=== PATIENT | male | born 1985 | race Hispanic/Latino ===

== ENCOUNTER 2019-02-23 22:31 | Emergency (ER) | payer BC, OTHER ==
[2019-02-23] MEDS ORDERED: ACETAMINOPHEN EXTRA STRENGTH 500 MG TABLET ONE (23:03)
[2019-02-23] MEDS ORDERED: LIDOCAINE 5% TOPICAL PATCH TP ONE (23:03)
[2019-02-23] MEDS ORDERED: DIAZEPAM 5 MG TABLET ONE (23:03)
== END 2019-02-24 00:32 | disposition home or self-care (01) ==
LOC: EDH 22:31
DX: M54.16 Radiculopathy, lumbar region (principal); Z90.5 Acquired absence of kidney

== ENCOUNTER 2019-03-05 12:51 | Emergency (ER) | payer OTHER ==
[2019-03-05] MEDS ORDERED: MECLIZINE HCL 25 MG TABLET ONE (13:05)
== END 2019-03-05 14:25 | disposition home or self-care (01) ==
LOC: EDH 12:51
DX: H81.392 Other peripheral vertigo, left ear (principal); Z90.5 Acquired absence of kidney

== ENCOUNTER 2019-06-02 07:47 | Emergency (ER) | payer OTHER ==
[2019-06-02] MEDS ORDERED: ONDANSETRON HCL 4 MG/2 ML VIAL ONE (08:16)
[2019-06-02] MEDS ORDERED: KETOROLAC TROMETHAMINE 30MG/ML ONE (08:16)
[2019-06-02] MEDS ORDERED: CEFTRIAXONE SODIUM 2 GM VIAL ONE (08:16)
[2019-06-02] MEDS ORDERED: SODIUM CHLORIDE 0.9% 1000ML 2,000 ML IV ONE (08:17)
[2019-06-02 08:18] LABS: APPEARANCE,URINE CLEAR (CLEAR); BASOPHILS % (AUTO) 0.2 % (0.0-5.0); BILIRUBIN,URINE NEGATIVE (NEGATIVE); COLOR,URINE YELLOW (YELLOW); EOSINOPHILS % (AUTO) 0.3 % (0.0-8.0); GLUCOSE, URINE (UA) NEGATIVE (NEGATIVE); HEMATOCRIT 48.6 % (42-54); KETONES,URINE NEGATIVE (NEGATIVE); LEUKOCYTE ESTERASE ,URINE SMALL (NEGATIVE); LYMPHOCYTES % (AUTO) 9.7 % (21.0-51.0); MEAN CORPUSCULAR HEMOGLOBIN 32.1 pg (27.0-33.0); MEAN CORPUSCULAR HGB CONC 34.8 g/dL (32.0-36.0); MEAN CORPUSCULAR VOLUME 92.1 fL (79-99); MONOCYTES % (AUTO) 7.4 % (3.0-13.0); NEUTROPHILS % (AUTO) 82.4 % (40.0-77.0); NITRATE,URINE NEGATIVE (NEGATIVE); OCCULT BLOOD,URINE TRACE-INTACT (NEGATIVE); PLATELET COUNT (AUTO) 155 K/uL (130-400); PROTEIN,URINE 30 mg/dL (NEGATIVE); RED BLOOD CELL COUNT(AUTO) 5.27 MIL/uL (4.50-6.20); RED CELL DISTRIBUTION WIDTH 12.3 % (11.0-15.5)
[2019-06-02 08:28] LABS: CREATININE 1.4 mg/dL (0.5-1.5); POTASSIUM 3.7 mmol/L (3.5-5.1)
[2019-06-02 08:35] LABS: ALBUMIN 3.4 g/dL (3.5-5.0); BILIRUBIN,DIRECT 0.9 mg/dL (0.0-0.3); TOTAL PROTEIN, SERUM 7.9 g/dL (6.0-8.3)
[2019-06-02 09:06] LABS: BACTERIA,URINE Rare /HPF (None Seen); RBC,URINE 0-1 /HPF (0-1); SQUAMOUS EPITHELIAL CELL,UR Few /HPF (0-2)
== END 2019-06-02 11:03 | disposition home or self-care (01) ==
LOC: EDH 07:47
DX: J18.1 Lobar pneumonia, unspecified organism (principal); E86.0 Dehydration; Z90.5 Acquired absence of kidney
CPT/HCPCS: 36415; 74176; 80048; 80076; 81001; 82550; 85025; 96361; 96374; 96375; 99285; J0696; J1885; J2405; J7030

== ENCOUNTER 2021-08-15 00:32 | Emergency (ER) | payer SELFPAY ==
[~2021-08-15] VITALS: Ht 180.3 cm; Wt 136.1 kg
[2021-08-15 01:19] VITALS: BP 136/58
[2021-08-15] MEDS ORDERED: HYDROMORPHONE 1 MG INJ IM ONE (01:30)
[2021-08-15] MEDS ORDERED: LORAZEPAM 2 MG/ML 1 ML VIAL IM ONE (01:30)
[2021-08-15] MEDS ORDERED: DEXAMETHASONE 4 MG TAB PO SCH (01:30)
[2021-08-15] MEDS ORDERED: KETOROLAC 60 MG VIAL (30MG/ML) IM ONE (01:30)
[2021-08-15 02:03] LABS: APPEARANCE,URINE Clear (CLEAR); BILIRUBIN,URINE Negative (NEGATIVE); COLOR,URINE Yellow (YELLOW); GLUCOSE, URINE (UA) Negative (NEGATIVE); KETONES,URINE Trace mg/dL (NEGATIVE); LEUKOCYTE ESTERASE ,URINE Moderate (NEGATIVE); NITRATE,URINE Positive (NEGATIVE); OCCULT BLOOD,URINE Negative (NEGATIVE); PH,URINE 5.5 (5.0-8.0); PROTEIN,URINE Negative (NEGATIVE)
[2021-08-15 02:13] LABS: BACTERIA,URINE Moderate /HPF (None Seen); RBC,URINE 0-1 /HPF (0-1); SQUAMOUS EPITHELIAL CELL,UR Rare /HPF (0-2); WBC,URINE 26-50 /HPF (0-1)
[2021-08-15] MEDS ORDERED: ACET1TAB25 PO (02:34)
[2021-08-15 02:36] VITALS: BP 107/61
== END 2021-08-15 02:56 | disposition home or self-care (01) ==
LOC: EDH 00:32
DX: M54.5 Low back pain (principal); Z79.1 Long term (current) use of non-steroidal anti-inflammatories (NSAID); Z79.52 Long term (current) use of systemic steroids; Z79.899 Other long term (current) drug therapy; Z90.5 Acquired absence of kidney
CPT/HCPCS: 72100; 81001; 87077; 87088; 87186; 96372 ×3; 99284; J1170; J1885; J2060; J8540

== ENCOUNTER 2021-11-16 05:27 | Emergency (ER) | payer SELFPAY ==
[~2021-11-16] VITALS: Ht 180.3 cm; Wt 139.7 kg
[~2021-11-16 05:27] MED LIST: ACET1TAB25 PO
[2021-11-16] MEDS ORDERED: HYDROCODONE/ACETAMINOPHEN 5/325 MG TAB PO ONE (06:00)
[2021-11-16 06:17] LABS: APPEARANCE,URINE Clear (CLEAR); BILIRUBIN,URINE Negative (NEGATIVE); COLOR,URINE Yellow (YELLOW); GLUCOSE, URINE (UA) Negative (NEGATIVE); KETONES,URINE Negative (NEGATIVE); LEUKOCYTE ESTERASE ,URINE Moderate (NEGATIVE); NITRATE,URINE Positive (NEGATIVE); OCCULT BLOOD,URINE Negative (NEGATIVE); PH,URINE 5.5 (5.0-8.0); PROTEIN,URINE Negative (NEGATIVE)
[2021-11-16 06:32] LABS: BASOPHILS % (AUTO) 0.7 % (0.0-5.0); EOSINOPHILS % (AUTO) 4.8 % (0.0-8.0); HEMATOCRIT 43.8 % (42-54); LYMPHOCYTES % (AUTO) 37.9 % (21.0-51.0); MEAN CORPUSCULAR HEMOGLOBIN 30.6 pg (27.0-33.0); MEAN CORPUSCULAR HGB CONC 33.6 g/dL (32.0-36.0); MEAN CORPUSCULAR VOLUME 91.1 fL (79-99); NEUTROPHILS % (AUTO) 48.3 % (40.0-77.0); PLATELET COUNT (AUTO) 178 K/uL (130-400); RED BLOOD CELL COUNT(AUTO) 4.81 MIL/uL (4.50-6.20); RED CELL DISTRIBUTION WIDTH 12.2 % (11.0-15.5); WHITE BLOOD COUNT (AUTO) 7.5 K/uL (4.8-10.8)
[2021-11-16 06:42] LABS: BACTERIA,URINE Many /HPF (None Seen); RBC,URINE 0-1 /HPF (0-1); SQUAMOUS EPITHELIAL CELL,UR Rare /HPF (0-2); WBC,URINE 26-50 /HPF (0-1)
[2021-11-16 06:46] LABS: ALBUMIN 3.7 g/dL (3.5-5.0); BILIRUBIN,TOTAL 0.7 mg/dL (0.2-1.0); CREATININE 1.6 mg/dL (0.5-1.5); POTASSIUM 3.7 mmol/L (3.5-5.1); TOTAL PROTEIN, SERUM 7.1 g/dL (6.0-8.3)
[2021-11-16] MEDS ORDERED: CEFTRIAXONE 1G VIAL IVP SCH (07:00)
[2021-11-16] MEDS ORDERED: CEFTRIAXONE 1G VIAL IM SCH (07:30)
[2021-11-16] MEDS ORDERED: CEPH500B PO (07:40)
[2021-11-16] MEDS ORDERED: CYCL10TA16 PO (07:40)
[2021-11-16 07:55] VITALS: BP 100/72
== END 2021-11-16 07:57 | disposition home or self-care (01) ==
LOC: EDH 05:27
DX: N39.0 Urinary tract infection, site not specified (principal); M54.50 Low back pain, unspecified
CPT/HCPCS: 36415; 80053; 81001; 82550; 83690; 85025; 87077; 87088; 87186; 96372; 99283; J0696

== ENCOUNTER 2023-03-20 00:20 | Emergency (ER) | payer OTHER ==
[~2023-03-20] VITALS: Ht 180.3 cm; Wt 146.5 kg
[~2023-03-20 00:20] MED LIST changes: +ACET-2079 PO; +ACET-66 PO; -ACET1TAB25 PO; +CEPH500B PO; +CEPH500T PO; +CYCL10TA16 PO
[2023-03-20] MEDS ORDERED: KETOROLAC 60 MG VIAL (30MG/ML) IM ONE (01:00)
[2023-03-20] MEDS ORDERED: ORPHENADRINE CITRATE 30 MG/ML ML IM ONE (01:00)
[2023-03-20] MEDS ORDERED: IBUP-2077 PO (01:41)
[2023-03-20] MEDS ORDERED: HYDR-4060 PO (01:41)
[2023-03-20] MEDS ORDERED: CYCL10TA16 PO (01:41)
[2023-03-20 02:11] VITALS: BP 138/78
== END 2023-03-20 02:14 | disposition home or self-care (01) ==
LOC: EDH 00:20
DX: M40.294 Other kyphosis, thoracic region (principal); Z79.899 Other long term (current) drug therapy; Z98.890 Other specified postprocedural states
CPT/HCPCS: 99284; 71046; 96372 ×2; J1885

== ENCOUNTER 2024-10-22 08:03 | Emergency (ER) | payer SELFPAY ==
[~2024-10-22] VITALS: Ht 182.9 cm; Wt 136.1 kg
[~2024-10-22 08:03] MED LIST changes: +HYDR-4060 PO; +IBUP-2077 PO
[2024-10-22 08:37] LABS: BASOPHILS # (AUTO) 0.05 K/uL (0.00-0.20); BASOPHILS % (AUTO) 0.8 % (0.0-5.0); EOSINOPHILS # (AUTO) 0.17 K/uL (0.00-0.70); EOSINOPHILS % (AUTO) 2.8 % (0.0-8.0); HEMATOCRIT 46.2 % (42-54); IMMATURE GRANULOCYTE ABSOLUTE 0.05 K/uL (0-1); MEAN CORPUSCULAR HEMOGLOBIN 31.1 pg (27.0-33.0); MEAN CORPUSCULAR HGB CONC 33.5 g/dL (32.0-36.0); MEAN CORPUSCULAR VOLUME 92.8 fL (79-99); MONOCYTES # (AUTO) 0.5 K/uL (0.1-1.0); MONOCYTES % (AUTO) 8.8 % (3.0-13.0); NEUTROPHILS # (AUTO) 2.3 K/uL (1.8-7.7); NEUTROPHILS % (AUTO) 37.8 % (40.0-77.0); PLATELET COUNT (AUTO) 212 K/uL (130-400); RED BLOOD CELL COUNT(AUTO) 4.98 MIL/uL (4.50-6.20); RED CELL DISTRIBUTION WIDTH 11.7 % (11.0-15.5); WHITE BLOOD COUNT (AUTO) 6.1 K/uL (4.8-10.8)
[2024-10-22 08:41] LABS: CREATININE 1.3 mg/dL (0.5-1.3); POTASSIUM 3.9 mmol/L (3.5-5.1)
--- NOTE | 2024-10-22 08:53 | ERN ---
General Chief Complaint: Shortness of Breath Stated Complaint: SOB Time Seen by MD: 08:05 History of Present Illness Initial Comments 39-year-old male presents to the ED for evaluation of shortness a breath onset 3 days ago, worsening at night. Patient denies any cough, nasal congestion, but denies any other associated symptoms at this time. Patient reports he was recently diagnosed with a UTI and has been taking his prescribed medication but states that since taking those medications his shortness a breath has been worsening. Allergies: Coded Allergies: No Known Drug Allergies (Verified Allergy, Unknown, 05/13/14) Home Meds Active Scripts Hydrocodone/Acetaminophen (Hydrocodon-Acetaminophen 5-325) 1 Each Tablet, 1 EACH PO Q6H for pain, #16 TAB 0 Refills Prov:ZHANG DURAN MD 03/20/23 Ibuprofen (Ibuprofen 800 mg Tab) 800 Mg Tab, 800 MG PO Q8H for 10 Days, #30 TAB 0 Refills Prov:ZHANG DURAN MD 03/20/23 Cyclobenzaprine HCl (Flexeril) 10 Mg Tab, 10 MG PO TID for muscle stiffness, #14 TAB 0 Refills Prov:ZHANG DURAN MD 03/20/23 Acetaminophen (Acetaminophen) 500 Mg Tablet, 1000 MG PO QID, #50 TAB Prov:MICKY CARVAJAL MD 12/07/21 Cephalexin (Cephalexin) 500 Mg Tablet, 500 MG PO BID for 7 Days, #14 TAB 1 Refill Prov:MICKY CARVAJAL MD 12/07/21 Cyclobenzaprine HCl (Flexeril) 10 Mg Tab, 10 MG PO TIDP PRN for MUSCLE SPASMS, #20 TAB 0 Refills Prov:SAMUEL MALONE MD 11/16/21 Cephalexin Monohydrate (Keflex) 500 Mg Cap, 500 MG PO TID for 7 Days, #21 CAP 0 Refills Prov:SAMUEL MALONE MD 11/16/21 Acetaminophen with Codeine (Acetaminophen-Cod #3 Tablet) 1 Each Tablet, 1 TAB PO Q6H PRN for pain, #20 TAB Prov:DEEP ORTA MD 08/15/21 Past Medical History Past Medical History: Other Medical History Other: HX OF KIDNEY STONES Past Surgical History: Other Surgical History Other: LEFT KIDNEY REMOVED Family History Family History: Negative Social History Social History: Negative, Lives with family ROS Dictation Constitutional: Negative for fever,chills, and weight loss Eyes: Negative for injury, pain,redness, and discharge ENT: Negative for injury,pain or swelling Cardiovascular: Negative for chest pain, palpitations, and edema Respiratory: Positive for shortness of breath, negative for cough, and wheezing, Abdomen/GI: Negative for abdominal pain, nausea, vomiting, diarrhea, and constipation Back: Negative for injury and pain : Negative for injury, bleeding and discharge MS/Extremity: Negative for injury and deformity Skin: Negative for rash, and discoloration Neuro: Negative for headache, weakness, numbness, tingling, and seizure Psych: Negative for suicide ideation, homicidal ideation, and hallucinations Physical Exam Physical Exam Dictation General: awake, alert, NAD Head/Face: Normocephalic, atraumatic Eyes: PERRL, EOMI, vision at baseline ENT: oral cavity clear, TMs clear, no signs of infection Neck: Trachea midline, supple, no nuchal rigidity Cardiovascular: RRR, normal S1/S2, No MRGs, no JVD Respiratory: CTAB, no respiratory distress, No rales or wheezes Abdomen: Soft, non-tender, non-distended, normal bowel sounds, no guarding or rebound. Skin: Warm, dry, normal turgor, no rash MS/Extremity: Pulses equal, no cyanosis, neurovascular intact, FROM Neuro: COAx4, GCS 15, strength 5/5, CN 2-12 intact, normal cerebellar exam, norm al gait, Psych: Normal behavior, mood, and affect normal Results Laboratory and Microbiology Lab and Micro Result Laboratory Tests Test 10/22/24 08:25 White Blood Count 6.1 K/uL (4.8-10.8) Red Blood Count 4.98 MIL/uL (4.50-6.20) Hemoglobin 15.5 g/dL (14.0-18.0) Hematocrit 46.2 % (42-54) Mean Corpuscular Volume 92.8 fL (79-99) Mean Corpuscular Hemoglobin 31.1 pg (27.0-33.0) Mean Corpuscular Hemoglobin Concent 33.5 g/dL (32.0-36.0) Red Cell Distribution Width 11.7 % (11.0-15.5) Platelet Count 212 K/uL (130-400) Mean Platelet Volume 8.8 fL (7.5-10.5) Immature Granulocyte % (Auto) 0.8 % (0-1) Neutrophils (%) (Auto) 37.8 % (40.0-77.0) L Lymphocytes (%) (Auto) 49.0 % (21.0-51.0) Monocytes (%) (Auto) 8.8 % (3.0-13.0) Eosinophils (%) (Auto) 2.8 % (0.0-8.0) Basophils (%) (Auto) 0.8 % (0.0-5.0) Neutrophils # (Auto) 2.3 K/uL (1.8-7.7) Lymphocytes # (Auto) 3.0 K/uL (1.0-4.8) Monocytes # (Auto) 0.5 K/uL (0.1-1.0) Eosinophils # (Auto) 0.17 K/uL (0.00-0.70) Basophils # (Auto) 0.05 K/uL (0.00-0.20) Absolute Immature Granulocyte (auto 0.05 K/uL (0-1) Nucleated Red Blood Cells 0.0 % (0.0-0.19) Urine Color COLORLESS (YELLOW) Urine Appearance CLEAR (CLEAR) Urine pH 6.0 (5.0-8.0) Urine Specific [place] 1.003 (1.001-1.031) Urine Protein NEGATIVE mg/dL (NEGATIVE) Urine Glucose (UA) NEGATIVE mg/dL (NEGATIVE) Urine Ketones NEGATIVE mg/dL (NEGATIVE) Urine Occult Blood NEGATIVE (NEGATIVE) Urine Nitrate NEGATIVE (NEGATIVE) Urine Bilirubin NEGATIVE mg/dL (NEGATIVE) Urine Urobilinogen 0.2 mg/dL (0.2-1.0) Urine Leukocyte Esterase NEGATIVE Collin/uL Sodium Level 141 mmol/L (136-145) Potassium Level 3.9 mmol/L (3.5-5.1) Chloride Level 104 mmol/L (101-111) Carbon Dioxide Level 33 mmol/L (21-32) H Blood Urea Nitrogen 15 mg/dL (7-18) Creatinine 1.3 mg/dL (0.5-1.3) Glomerular Filtration Rate Calc 73 mL/min (>90) Random Glucose 98 mg/dL (70-105) Total Calcium 8.8 mg/dL (8.5-10.1) Troponin I High Sensitivity 5 ng/L (4-75) B-Type Natriuretic Peptide 15 pg/mL (0-100) Labs Reviewed?: Yes EKG/XRAY/US/CT/MRI EKG Comment EKG 10/22/2024 time 8:32 a.m. ventricular rate 52, NC 178, QRS D 104, QT 438. No STEMI MDM MDM: Differential diagnosis: Dyspnea, UTI Previous outside records reviewed: Old ER visits. Need for hospitalization: Patient does not meet criteria for hospitalization. Need for emergency major/minor surgery: No Patient's prior external medical records from other ER visits were reviewed by me as indicated. Prior testing and results from previous visits were reviewed. Prior tests were taken into account with medical decision making and resource utilization, independent historian/historians were used to obtain complete medical history. I independently interpreted the test that were performed, results were reviewed by me and considered findings on radiology if ordered. Medical management and examination interpretation discussions were had by me with other qualified healthcare professionals as indicated for the patient's care. Negative PERC score ED Course Orders Procedure Category Date Status Time Vital Signs Per CPOE 10/22/24 Transmitted Routine 08:21 12 Lead Ekg Tracing- EKG 10/22/24 Complete Technical 08:21 Oxygen By Nc/Pulse Ox CPOE 10/22/24 Transmitted 08:21 Maintain Iv CPOE 10/22/24 Transmitted 08:21 Iv Insertion CPOE 10/22/24 Transmitted 08:21 Cardiac Monitoring CPOE 10/22/24 Transmitted 08:21 Pulse Oximetry With CPOE 10/22/24 Transmitted Vs And Prn 08:21 Cbc With Differential LAB 10/22/24 Complete 08:21 Activity: Br W/Brp CPOE 10/22/24 Transmitted With Assist 08:21 Troponin I High LAB 10/22/24 Complete Sensitivity 08:21 Urinalysis Profile LAB 10/22/24 Complete 08:21 Basic Metabolic Panel LAB 10/22/24 Complete 08:21 B-Type Natriuretic LAB 10/22/24 Complete Peptide 08:47 Chest 1vw RAD 10/22/24 Resulted 09:27 Vital Signs Date Time Temp Pulse Resp B/P (MAP) Pulse Ox O2 Delivery O2 Flow Rate FiO2 10/22/24 09:20 98.2 98 20 121/70 99 Room Air* 0 21 10/22/24 08:27 98.2 98 16 130/79 98 Room Air* 0 21 12/4/24 08:04 97.2 51 20 132/84 99 Room Air DX & DISP Disposition: Discharge Departure Impression: Primary Impression: Dyspnea Condition: Stable Referrals: BRETT PRITCHETT MD (PCP) I have reviewed, & agreed with my scribe's, documentation. (Entered by Julisa Bean, acting as a scribe for Dr. Chaves) I personally scribed for KIMMIE CHAVES MD ([email or web address]) on 10/22/24 at 08:53. Electronically submitted by Julisa Bean ([email or web address]). I personally scribed for KIMMIE CHAVES MD ([email or web address]) on 10/22/24 at 10:56. Electronically submitted by Julisa Bean ([email or web address]). KIMMIE CHAVES MD Oct 22, 2024 08:53
[2024-10-22 08:55] LABS: APPEARANCE,URINE CLEAR (CLEAR); BILIRUBIN,URINE NEGATIVE (NEGATIVE); COLOR,URINE COLORLESS (YELLOW); GLUCOSE, URINE (UA) NEGATIVE (NEGATIVE); KETONES,URINE NEGATIVE (NEGATIVE); LEUKOCYTE ESTERASE ,URINE NEGATIVE Leu/uL (NEGATIVE); NITRATE,URINE NEGATIVE (NEGATIVE); OCCULT BLOOD,URINE NEGATIVE (NEGATIVE); PROTEIN,URINE NEGATIVE (NEGATIVE); UROBILINOGEN,URINE 0.2 mg/dL (0.2-1.0)
[2024-10-22 09:10] LABS: ADD UA MICROSCOPIC NO
--- NOTE | 2024-10-22 10:01 | EKG ---
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
--- NOTE | 2024-10-22 10:40 | HMCIMG ---
CHEST 1VW HISTORY: Shortness of breath COMPARISON: None FINDINGS: A frontal projection of the chest was obtained. No acute pulmonary infiltrates is seen. The heart is normal in size. Prominent interstitial markings are seen. No evidence of aortic calcification is seen. IMPRESSION: 1. No acute pulmonary infiltrate is seen.
[2024-10-22 11:20] VITALS: BP 125/79; PULSE 98; RESP 20; TEMP 98.2; O2SAT 99
--- NOTE | 2024-10-23 07:33 | EKG ---
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
== END 2024-10-22 11:21 | disposition home or self-care (01) ==
LOC: EDH 08:03
DX: R06.00 Dyspnea, unspecified (principal)
CPT/HCPCS: 36415; 71045; 80048; 81003; 83880; 84484; 85025; 93005; 99285

== ENCOUNTER 2024-12-01 09:30 | Emergency (ER) | payer BC ==
[~2024-12-01] VITALS: Ht 182.9 cm; Wt 136.1 kg
--- NOTE | 2024-12-01 09:54 | EKG ---
[facility] Test Date: 2024-12-01 Test Time: 09:51:45 Pat Name: WILY ABEL Department: ED Room: Gender: M Respiratory Therapy Manager: [id number] : 1985 Requested By: LUCY PRITCHETT Order Number: [id number] Reading MD: Sloan Moreno Measurements Intervals [place] Rate: 57 P: 31 [place]: 168 QRS: 45 QRSD: 101 T: 36 QT: 407 QTc: 396 Interpretive Statements Sinus rhythm Compared to ECG 10/22/2024 08:32:43 No significant changes Electronically Signed On 12-01-2024 22:03:56 TELLER COORDINATOR by Sloan Moreno Please click the below link to view image of tracing.
[2024-12-01 10:20] LABS: BASOPHILS # (AUTO) 0.04 K/uL (0.00-0.20); BASOPHILS % (AUTO) 0.6 % (0.0-5.0); EOSINOPHILS % (AUTO) 2.9 % (0.0-8.0); HEMATOCRIT 48.5 % (42-54); IMMATURE GRANULOCYTE ABSOLUTE 0.03 K/uL (0-1); LYMPHOCYTES # (AUTO) 2.3 K/uL (1.0-4.8); LYMPHOCYTES % (AUTO) 33.6 % (21.0-51.0); MEAN CORPUSCULAR HEMOGLOBIN 30.6 pg (27.0-33.0); MEAN CORPUSCULAR HGB CONC 33.6 g/dL (32.0-36.0); MEAN CORPUSCULAR VOLUME 91.2 fL (79-99); MONOCYTES # (AUTO) 0.5 K/uL (0.1-1.0); MONOCYTES % (AUTO) 7.1 % (3.0-13.0); NEUTROPHILS # (AUTO) 3.8 K/uL (1.8-7.7); NEUTROPHILS % (AUTO) 55.4 % (40.0-77.0); PLATELET COUNT (AUTO) 204 K/uL (130-400); RED BLOOD CELL COUNT(AUTO) 5.32 MIL/uL (4.50-6.20); WHITE BLOOD COUNT (AUTO) 6.8 K/uL (4.8-10.8)
[2024-12-01 10:26] LABS: APPEARANCE,URINE CLEAR (CLEAR); BILIRUBIN,URINE NEGATIVE (NEGATIVE); COLOR,URINE YELLOW (YELLOW); GLUCOSE, URINE (UA) NEGATIVE (NEGATIVE); KETONES,URINE NEGATIVE (NEGATIVE); LEUKOCYTE ESTERASE ,URINE 250 Leu/uL (NEGATIVE); NITRATE,URINE NEGATIVE (NEGATIVE); OCCULT BLOOD,URINE NEGATIVE (NEGATIVE); PH,URINE 5.5 (5.0-8.0); PROTEIN,URINE NEGATIVE (NEGATIVE); UROBILINOGEN,URINE 0.2 mg/dL (0.2-1.0)
[2024-12-01 10:29] LABS: ADD UA MICROSCOPIC YES
[2024-12-01 10:31] LABS: BACTERIA,URINE RARE /HPF (None Seen); MUCUS,URINE RARE LPF (None Seen); RBC,URINE 0-1 /HPF (0-1); SQUAMOUS EPITHELIAL CELL,UR RARE /HPF (0-2)
[2024-12-01 10:39] LABS: CREATININE 1.1 mg/dL (0.5-1.3); POTASSIUM 4.3 mmol/L (3.5-5.1)
--- NOTE | 2024-12-01 10:42 | HMCIMG ---
CHEST 1VW HISTORY: Shortness of breath COMPARISON: 10/22/2024 FINDINGS: A frontal projection of the chest was obtained. No acute pulmonary infiltrates is seen. The heart is borderline enlarged. Prominent interstitial markings are seen. No evidence of aortic calcification is seen. IMPRESSION: 1. No acute pulmonary infiltrate is seen.
--- NOTE | 2024-12-01 11:08 | ERN ---
General Chief Complaint: Shortness of Breath Stated Complaint: SOB, PALPITATIONS Time Seen by MD: 09:33 Time Seen by Midlevel: 09:33 Source: patient History of Present Illness Initial Comments Patient is a 39-year-old male presenting to the emergency department with multiple complaints. His primary complaint is that for the last several weeks he has been having episodes of shortness of breath at rest. They usually happen at night. Patient states he wakes up gasping for air. He denies ever being evaluated for sleep apnea and denies having any history of sleep apnea. Additionally, the other complaint is that he was having a persistent urinary tract infection. Patient reports a childhood history of a nephrectomy after being found with hydronephrosis. Ever since he has been battling recurrent urinary tract infections. Most recently he was diagnosed with a urinary tract infection a year ago and he has been on and off antibiotics for the last year. He was not seen a urologist or in infectious disease specialist for this. He specifically denies any fever, chills, or any other symptoms at this time. Allergies: Coded Allergies: No Known Drug Allergies (Verified Allergy, Unknown, 05/13/14) Home Meds Active Scripts Hydrocodone/Acetaminophen (Hydrocodon-Acetaminophen 5-325) 1 Each Tablet, 1 EACH PO Q6H for pain, #16 TAB 0 Refills Prov:ZHANG DURAN MD 03/20/23 Ibuprofen (Ibuprofen 800 mg Tab) 800 Mg Tab, 800 MG PO Q8H for 10 Days, #30 TAB 0 Refills Prov:ZHANG DURAN MD 03/20/23 Cyclobenzaprine HCl (Flexeril) 10 Mg Tab, 10 MG PO TID for muscle stiffness, #14 TAB 0 Refills Prov:ZHANG DURAN MD 03/20/23 Acetaminophen (Acetaminophen) 500 Mg Tablet, 1000 MG PO QID, #50 TAB Prov:MICKY CARVAJAL MD 12/07/21 Cephalexin (Cephalexin) 500 Mg Tablet, 500 MG PO BID for 7 Days, #14 TAB 1 Refill Prov:MICKY CARVAJAL MD 12/07/21 Cyclobenzaprine HCl (Flexeril) 10 Mg Tab, 10 MG PO TIDP PRN for MUSCLE SPASMS, #20 TAB 0 Refills Prov:SAMUEL MALONE MD 11/16/21 Cephalexin Monohydrate (Keflex) 500 Mg Cap, 500 MG PO TID for 7 Days, #21 CAP 0 Refills Prov:SAMUEL MALONE MD 11/16/21 Acetaminophen with Codeine (Acetaminophen-Cod #3 Tablet) 1 Each Tablet, 1 TAB PO Q6H PRN for pain, #20 TAB Prov:DEEP ORTA MD 08/15/21 Past Medical History Past Medical History: UTI, Other Medical History Other: HX OF KIDNEY STONES Past Surgical History: Other Surgical History Other: LEFT KIDNEY REMOVED Family History Family History: Negative Social History Social History: Negative, Lives with family ROS Dictation CONSTITUTIONAL: Negative except for HPI HEAD/FACE: Negative except for HPI EENT: Negative except for HPI RESPIRATORY: Negative except for HPI GASTROINTESTINAL/ABDOMINAL: Negative except for HPI GENITOURINARY: Negative except for HPI MUSCULOSKELETAL: Negative except for HPI INTEGUMENTARY: Negative except for HPI NEUROLOGICAL/PSYCH: Negative except for HPI HEMATOLOGIC/LYMPHATIC: Negative except for HPI All Systems Negative, Except as noted above. 13 point review of systems assessed and all negative except for above. Physical Exam Physical Exam Dictation Vital Signs reviewed General Appearance: Alert, oriented x 3, no acute distress, well developed, nourished. Head and Face: non-traumatic. Eyes: PERRL, pink conjunctivas, eyelid no trauma, anterior chamber with arcus senilis. Ears: Pinnas intact and no signs of trauma or erythema ear canals clear and no discharge TM no erythema Nose: No discharge, no bleeding. Oropharynx: Mouth normal, tongue pink, pharynx clear,no erythema, tonsils no exudates, no abscesses noted, mucous membrane moist Neck: Supple, non-tender, no thyromegaly, no masses, no JVD, no bruits Breast:Deferred Chest:No tenderness, no crepitus, no paradoxical movement, no retractions Lungs:Clear, well-ventilated, symmetric, no rales, no wheezing, no rhonchi, no stridor, good breath sounds bilaterally Heart: Regular rate, regular rhythm, no murmur, no gallops Vascular: no peripheral edema, Abdomen: Soft, positive bowel sounds, nondistended, no guarding, nontender, no rebound, no masses no hepatomegaly, no splenomegaly, no Can's sign, no hernias. Rectal: Deferred Genital: Deferred Neurological: Normal speech, motor function intact, sensory function intact Musculoskeletal: Neck nontender, full range of motion, back nontender, full range of motion, Extremities: nontender, full range of motion Skin: Color pink, dry, no turgor, no rash, no lacerations, no abrasions, no contusions. Lymphatic: Deferred Results Laboratory and Microbiology Lab and Micro Result Laboratory Tests Test 12/01/24 10:00 12/01/24 10:09 Urine Color YELLOW (YELLOW) Urine Appearance CLEAR (CLEAR) Urine pH 5.5 (5.0-8.0) Urine Specific [place] 1.019 (1.001-1.031) Urine Protein NEGATIVE mg/dL (NEGATIVE) Urine Glucose (UA) NEGATIVE mg/dL (NEGATIVE) Urine Ketones NEGATIVE mg/dL (NEGATIVE) Urine Occult Blood NEGATIVE (NEGATIVE) Urine Nitrate NEGATIVE (NEGATIVE) Urine Bilirubin NEGATIVE mg/dL (NEGATIVE) Urine Urobilinogen 0.2 mg/dL (0.2-1.0) Urine Leukocyte Esterase 250 Collin/uL (NEGATIVE) H Urine RBC 0-1 /HPF (0-1) Urine WBC 11-25 /HPF (0-1) H Urine Squamous Epithelial Cells RARE /HPF (0-2) Urine Bacteria RARE /HPF (None Seen) White Blood Count 6.8 K/uL (4.8-10.8) Red Blood Count 5.32 MIL/uL (4.50-6.20) Hemoglobin 16.3 g/dL (14.0-18.0) Hematocrit 48.5 % (42-54) Mean Corpuscular Volume 91.2 fL (79-99) Mean Corpuscular Hemoglobin 30.6 pg (27.0-33.0) Mean Corpuscular Hemoglobin Concent 33.6 g/dL (32.0-36.0) Red Cell Distribution Width 12.0 % (11.0-15.5) Platelet Count 204 K/uL (130-400) Mean Platelet Volume 9.2 fL (7.5-10.5) Immature Granulocyte % (Auto) 0.4 % (0-1) Neutrophils (%) (Auto) 55.4 % (40.0-77.0) Lymphocytes (%) (Auto) 33.6 % (21.0-51.0) Monocytes (%) (Auto) 7.1 % (3.0-13.0) Eosinophils (%) (Auto) 2.9 % (0.0-8.0) Basophils (%) (Auto) 0.6 % (0.0-5.0) Neutrophils # (Auto) 3.8 K/uL (1.8-7.7) Lymphocytes # (Auto) 2.3 K/uL (1.0-4.8) Monocytes # (Auto) 0.5 K/uL (0.1-1.0) Eosinophils # (Auto) 0.20 K/uL (0.00-0.70) Basophils # (Auto) 0.04 K/uL (0.00-0.20) Absolute Immature Granulocyte (auto 0.03 K/uL (0-1) Nucleated Red Blood Cells 0.0 % (0.0-0.19) Sodium Level 141 mmol/L (136-145) Potassium Level 4.3 mmol/L (3.5-5.1) Chloride Level 105 mmol/L (101-111) Carbon Dioxide Level 29 mmol/L (21-32) Blood Urea Nitrogen 11 mg/dL (7-18) Creatinine 1.1 mg/dL (0.5-1.3) Glomerular Filtration Rate Calc 89 mL/min (>90) Random Glucose 106 mg/dL (70-105) H Total Calcium 9.2 mg/dL (8.5-10.1) MQ-Xto-N-Type Natriuretic Peptide 15 pg/mL (0-125) Labs Reviewed?: Yes MDM MDM: Differential diagnosis: ACS, asthma exacerbation, pneumonia, pulmonary edema, pneumothorax, sleep apnea There are no social concerns with this patient. Prescription drug management Prescriptions will include: None Medical management and examination interpretation discussions were had by me with other qualified healthcare professionals as indicated for the patient's care. ED Course Orders Procedure Category Date Status Time 12 Lead Ekg Tracing- EKG 12/01/24 Complete Technical 09:41 Urinalysis Profile LAB 12/01/24 Complete 09:41 Chest 1vw RAD 12/01/24 Resulted 09:41 Cbc With Differential LAB 12/01/24 Complete 09:41 Probnp LAB 12/01/24 Complete 09:41 Basic Metabolic Panel LAB 12/01/24 Complete 10:09 Culture Urine LAZARO 12/01/24 In Process 10:29 Vital Signs Date Time Temp Pulse Resp B/P (MAP) Pulse Ox O2 Delivery O2 Flow Rate FiO2 12/01/24 09:31 97.9 59 16 128/88 97 Room Air 0 DX & DISP Disposition: Discharge Departure Impression: Primary Impression: Complicated UTI (urinary tract infection) Additional Impression: Shortness of breath Condition: Stable Additional Instructions: Your blood work today is unremarkable. Your cardiac enzymes are negative. Your EKG does not show any evidence of a heart attack. Your chest x-ray is normal. Your urinalysis does show evidence of infection. Given your history of recurrent urinary tract infections we will go ahead and wait for urine culture until we start you on antibiotics. I have given you a follow up with an infectious disease specialist. The name of the clinic is [facility]. It is located at [address] [place] [address] . Please call to make an appointment. You will also need to follow up with the materials management supervisor and a glass furnace operator. You will need a sleep study test performed outpatient to evaluate for sleep apnea as this could be contributing to your symptoms. If you develop any new or worsening symptoms please report to the ER for further evaluation. Referrals: BRETT PRITCHETT MD (PCP) Time of Disposition: 10:58 I have reviewed the case, and I agree with, Diagnosis and Plan I performed the substantive portion of the visit. I have reviewed and personally made and approve the management plan that is documented in the note by myself or the ROMELIA. I acknowledge for responsibility for the patient's management plan. LUCY PRITCHETT Dec 01, 2024 11:07
[2024-12-01 11:20] VITALS: BP 122/76; PULSE 57; RESP 18; TEMP 97.9; O2SAT 98
== END 2024-12-01 11:28 | disposition home or self-care (01) ==
LOC: EDH 09:30
DX: N39.0 Urinary tract infection, site not specified (principal); R06.02 Shortness of breath; Z90.5 Acquired absence of kidney
CPT/HCPCS: 36415; 71045; 80048; 81001; 83880; 85025; 87086; 93005; 99284